=== PATIENT | female | born 1990 | race Caucasian/White ===

== ENCOUNTER 2020-09-26 08:13 | Emergency (ER) | payer BC ==
[~2020-09-26 08:13] MED LIST: CYCLOBENZAPRINE10 MG PO; IBUPROFEN600 MG PO; MACROBID 100 M100 MG PO; NAPROSYN500 MG PO; ONDANSETRON ODT4 MG PO; PREDNISONE 20 M20 MG PO; TAMIFLU75 MG PO; ZOFRAN ODT 4 MG4 MG GT; ZOFRAN4 MG PO
[2020-09-26 09:06] LABS: HEMOGLOBIN 14.8 gm/dl (12.3-15.3); RED BLOOD COUNT 5.53 M/UL (4.00-5.10); WHITE BLOOD COUNT 4.9 K/UL (4.5-11.0)
[2020-09-26 09:28] LABS: BUN/CREATININE RATIO 15 (0-10)
== END 2020-09-26 11:54 | disposition home or self-care (01) ==
LOC: ER1 08:13
PROVIDERS: Physician Assistant
DX: R10.11 Right upper quadrant pain (principal); R11.0 Nausea; Z90.49 Acquired absence of other specified parts of digestive tract; Z98.890 Other specified postprocedural states
CPT/HCPCS: 80053; 81001; 84703; 85025; 96374; 99284; J1885

== ENCOUNTER 2020-10-11 13:34 | Emergency (ER) | payer BC ==
[2020-10-11 15:57] LABS: HEMOGLOBIN 14.4 gm/dl (12.3-15.3); RED BLOOD COUNT 5.4 M/UL (4.00-5.10); WHITE BLOOD COUNT 6.8 K/UL (4.5-11.0)
[2020-10-11 16:08] LABS: BUN/CREATININE RATIO 14 (0-10)
[2020-10-11] MEDS ORDERED: NAPROSYN500 MG PO (16:18)
[2020-10-11] MEDS ORDERED: CYCLOBENZAPRINE10 MG PO (16:18)
== END 2020-10-11 16:30 | disposition home or self-care (01) ==
LOC: ER1 13:34
PROVIDERS: Physician Assistant
DX: R10.9 Unspecified abdominal pain (principal); M54.9 Dorsalgia, unspecified; Z90.49 Acquired absence of other specified parts of digestive tract; Z98.890 Other specified postprocedural states
CPT/HCPCS: 36415; 80053; 81001; 85025; 96372; 99283; J1885

== ENCOUNTER 2021-01-26 03:23 | Emergency (ER) | payer BC ==
[2021-01-26] MEDS ORDERED: CYCLOBENZAPRINE10 MG PO (10:04)
[2021-01-26] MEDS ORDERED: NAPROSYN500 MG PO (10:04)
== END 2021-01-26 11:14 | disposition home or self-care (01) ==
LOC: ER1 03:23
DX: S39.012A Strain of muscle, fascia and tendon of lower back, initial encounter (principal); Z90.49 Acquired absence of other specified parts of digestive tract; X50.9XXA Other and unspecified overexertion or strenuous movements or postures, initial encounter; Y92.89 Other specified places as the place of occurrence of the external cause; Y99.0 Civilian activity done for income or pay
CPT/HCPCS: 96372; 99283; J1100; J1885

== ENCOUNTER 2022-05-24 16:35 | Emergency (ER) | payer BC ==
[2022-05-24] MEDS ORDERED: CLEOCIN HCL300 MG PO (17:28)
[2022-05-24] MEDS ORDERED: IBUPROFEN600 MG PO (17:28)
== END 2022-05-24 18:00 | disposition home or self-care (01) ==
LOC: ER1 16:35
DX: K08.89 Other specified disorders of teeth and supporting structures (principal)
CPT/HCPCS: 99282